=== PATIENT | female | born 1990 | race Caucasian/White ===

== ENCOUNTER 2016-07-04 12:10 | Emergency (ER) | payer MEDICAID ==
[2016-07-04 12:27] VITALS: BP 124/74
[2016-07-04] MEDS ORDERED: Sodium Chloride 0.9% 1,000 ML IV ONE (12:31)
--- NOTE | 2016-07-04 12:36 | ED Physician Chart ---
Chief Complaint/HPI - Patient Information Date Seen:: 07/04/16 Time Seen:: 12:32 Chief Complaint:: abd p History of Present Illness:: pt here for abd p that began at 9am today. has had n/ v x 5. no fever. pain is aching at rt low abd. no uri sx. no chema pmh. denies risk of being gravid. lmp 2 wks ago was nrml. no vag dc. Allergies:: Allergies Allergy/AdvReac Type Severity Reaction Status Date / Time No Known Allergies Allergy Verified 07/04/16 12:27 Vitals:: Vital Signs - 8 hr 07/04/16 12:27 BP 124/74 Historian:: Patient Review of Systems - Review of Systems General/Constitutional: No fever, No chills, No weight loss, No weakness, No diaphoresis, No edema, No loss of appetite Skin: No skin lesions, No rash, No bruising Head: No headache, No light-headedness Eyes: No loss of vision, No pain, No diplopia ENT: No earache, No nasal drainage, No sore throat, No tinnitus Neck: No neck pain, No swelling, No thyromegaly, No stiffness, No mass noted Cardio Vascular: No chest pain, No palpitations, No PND, No orthopnea, No edema Pulmonary: No SOB, No cough, No sputum, No wheezing GI: Nausea, No vomiting, No diarrhea, Pain, No melena, No hematochezia, No constipation, No hematemesis G/U: No dysuria, No frequency, No hematuria Musculoskeletal: No bone or joint pain, No back pain, No muscle pain Endocrine: No polyuria, No polydipsia Psychiatric: No prior psych history, No depression, No anxiety, No suicidal ideation Hematopoietic: No bruising, No lymphadenopathy Allergic/Immuno: No urticaria, No angioedema Neurological: No syncope, No focal symptoms, No weakness, No paresthesia, No headache, No seizure, No dizziness, No confusion, No vertigo Past Medical History - Past Medical History Past Medical History: Other (healthy. . no sx hx.) Social History: Non Smoker Surgical History: None Medication: Reviewed Family Medical History - Family Member Mother Ethnicity: Hx Family Cancer: No Hx Family Congestive Heart Failure: No Hx Family Stroke: No Hx Family Diabetes: No Hx Family Seizures: No Hx Family Dementia: No Hx Family AIDS: No Hx Family COPD: No Hx Family Hepatitis: No Hx Family Psychiatric Problems: No Physical Exam - Physical Examination General/Constitutional: Awake, Well-developed, well-nourished, Alert, No distress, GCS 15, Non-toxic appearing, Ambulatory Head: Atraumatic Eyes: Lids, conjuctiva normal, PERRL, EOMI Skin: Nl inspection, No rash, No skin lesions, No ecchymosis, Well hydrated, No lymphadenopathy ENMT: External ears, nose nl, Nasal exam nl, Lips, teeth, gums nl Neck: Nontender, Full ROM w/o pain, No JVD, No nuchal rigidity, No bruit, No mass, No stridor Respiratory: Nl effort/Exclusion, Clear to Auscultation, No Wheeze/Rhonchi/Rales Cardio Vascular: RRR, No murmur, gallop, rubs, NL S1 S2 GI: No tenderness/rebounding/guarding, No organomegaly, No hernia, Normal BS's, Nondistended, No mass/bruits, No McBurney tenderness Other GI comments:: mod tndr at low abd and sltly to rt side. nabs. no masses. no rebound. no obturator/psoas sx. : No CVA tenderness Extremities: No tenderness or effusion, Full ROM, normal strength in all extremities, No edema, Normal digits & nails Neuro/Psych: Alert/oriented, DTR's symmetric, Normal sensory exam, Normal motor strength, Judgement/insight normal, Mood normal, Normal gait, No focal deficits Misc: normal gait, Normal back, No paraspinal tenderness Labs/Radiology/EKG Results - Lab Results Results: Laboratory Tests 07/04/16 07/04/16 07/04/16 12:50 12:50 13:00 WBC 15.1 H RBC 4.84 Hgb 13.9 Hct 41.2 MCV 85.2 MCH 28.7 MCHC Differential 33.7 RDW 12.4 Plt Count 267 MPV 8.3 Band Neutrophils % 2 Neutrophils (Manual) 86 H Lymphocytes 8 L Monocytes 4 Platelet Estimate ADEQUATE Platelet Morphology NORMAL RBC Morph Micro Appear NORMAL Sodium Potassium Chloride Carbon Dioxide Anion Gap BUN Creatinine Est GFR ( Amer) Est GFR (Non-Af Amer) BUN/Creatinine Ratio Glucose Whole Bld Lactic Acid Calcium Total Bilirubin AST ALT Alkaline Phosphatase Total Protein Albumin Globulin Albumin/Globulin Ratio Lipase Urine Source CLEAN C Urine Color YELLOW Urine Clarity SL. CLOUDY Urine pH 7.0 Ur Specific Ophiem 1.025 Urine Protein TRACE Urine Glucose (UA) NEGATIVE Urine Ketones >=80 H Urine Blood NEGATIVE Urine Nitrate NEGATIVE Urine Bilirubin SMALL H Urine Urobilinogen 0.2 Ur Leukocyte Esterase SMALL H Urine RBC 0-1 Urine WBC 25-50 H Ur Epithelial Cells FEW Urine Bacteria FEW Urine Test NEGATIVE 07/04/16 07/04/16 13:00 13:40 WBC RBC Hgb Hct MCV MCH MCHC Differential RDW Plt Count MPV Band Neutrophils % Neutrophils (Manual) Lymphocytes Monocytes Platelet Estimate Platelet Morphology RBC Morph Micro Appear Sodium 137 Potassium 3.4 L Chloride 105 Carbon Dioxide 21.4 Anion Gap 14.0 BUN 11 Creatinine 0.6 Est GFR ( Amer) > 60.0 Est GFR (Non-Af Amer) > 60.0 BUN/Creatinine Ratio 18.3 Glucose 84 Whole Bld Lactic Acid 1.21 Calcium 9.7 Total Bilirubin 0.6 AST 15 ALT 8 Alkaline Phosphatase 51 Total Protein 7.6 Albumin 4.2 Globulin 3.4 Albumin/Globulin Ratio 1.2 Lipase 12 Urine Source Urine Color Urine Clarity Urine pH Ur Specific Ophiem Urine Protein Urine Glucose (UA) Urine Ketones Urine Blood Urine Nitrate Urine Bilirubin Urine Urobilinogen Ur Leukocyte Esterase Urine RBC Urine WBC Ur Epithelial Cells Urine Bacteria Urine Test - Radiology Results Results: ct abd/p- bilat adnexal masses US pelvis- complex cystic/solid mass at rt adnexa...could be tubo-ovarian abscess Assessment - Assessment Critical Care Time: 110 Excludes all billable procedures: Yes This condition life threatening/high prob of deterioration: Yes ED Septic Shock - . Is Septic Shock (SBP<90, OR Lactate>4 mmol\L) present?: No - <6hrs of presentation: Vital Signs: Vital Signs - 8 hr 07/04/16 12:27 BP 124/74 Reassessment (Disposition) - Reassessment Reassessment:: (aprox 4pm) bryce Wallace (labour market economist ) ..who refuses admit on basis we do not have any transit manager Dr on staff aas of now...confirmed w staff. called Anushka Rodney but getting no call back from labour market economist endoscopy support specialist (5;25p) case dw Dr Carballo advises we do ED to ED transfer to [place] and let them call/admit Drs from there... call received from Stephen Rodney from endoscopy support specialist labour market economist Dr Bruner. Dr Andrade advises not to admit the pt at this point,. He can see her outpt and plan a sx from there. he would want tumor markers before doing a sx (added) and can f/u at his office. He advises dc w just doxy abx for coverage(done). plan dw pt and all qs answered. will add zofran rx for comfort although pt has had no n/v in ed here today.. advised to to return or go to facility e tubing [facility] if sx worsen at all. Reassessment Condition:: Improved - Diagnosis Diagnosis:: 1 abdominal pain 2 rt adnexal complex mass (caant exclude poss ca vs tubovarian abscess) - Aftercare/Follow up Instructions Aftercare/Follow-Up Instructions:: Counseled pt & family regarding lab results/ diagnosis & need follow up - Patient Disposition Discharge/Transfer:: Home Condition at Disposition:: Improved
[2016-07-04] MEDS ORDERED: Morphine Sulfate 4 mg/mL 1mL Syr ONE (13:08)
[2016-07-04 13:10] LABS: HEMATOCRIT 41.2 % (35.0-45.0); HEMOGLOBIN 13.9 gm/dL (11.7-15.5); MEAN CELL VOLUME 85.2 fl (81-100); MEAN CORPUSCULAR HEMOGLOBIN 28.7 pg (27.0-31.0); MEAN CORPUSCULAR HGB CONC 33.7 pg (28.0-36.0); MEAN PLATELET VOLUME 8.3 fl; PLATELET COUNT 267 Th/cmm (150-400); RED BLOOD COUNT 4.84 Mil/cmm (3.80-5.10); RED CELL DISTRIBUTION WIDTH 12.4 % (11.5-20.0); WHITE BLOOD COUNT 15.1 Th/cmm (4.8-10.8)
[2016-07-04 13:25] LABS: ALB/GLOB RATIO 1.2 (1.0-1.8); ALKALINE PHOSPHATASE 51 U/L (34-104); BILIRUBIN,TOTAL 0.6 mg/dL (0.3-1.0); BUN - UREA NITROGEN 11 mg/dL (7-25); BUN/CREATININE RATIO 18.3; CALCIUM SERUM 9.7 mg/dL (8.6-10.3); CARBON DIOXIDE 21.4 mEq/L (21.0-31.0); CHLORIDE 105 mEq/L (98-107); CREATININE - SERUM 0.6 mg/dL (0.6-1.2); GLUCOSE 84 mg/dL (70-105); LIPASE 12 U/L (11-82); POTASSIUM SERUM 3.4 mEq/L (3.5-5.1); SGOT 15 U/L (13-39); SGPT/ALT 8 U/L (7-52); SODIUM SERUM 137 mEq/L (136-145)
[2016-07-04 13:25] LABS: URINE BILIRUBIN SMALL (NEGATIVE); URINE COLOR YELLOW; URINE GLUCOSE (UA) NEGATIVE (NEGATIVE); URINE KETONE >=80 mg/dL (NEGATIVE)
[2016-07-04 13:26] LABS: URINE BLOOD NEGATIVE (NEGATIVE); URINE PROTEIN TRACE mg/dL (NEGATIVE); URINE UROBILINOGEN 0.2 E.U./dL (0.2 - 1.0)
[2016-07-04 13:32] LABS: URINE BACTERIA FEW /hpf (NONE SEEN); URINE EPITHELIAL CELLS FEW /lpf (FEW); URINE RBC 0-1 /hpf (0-5); URINE WBC 25-50 /hpf (0-5)
[2016-07-04 13:35] LABS: BAND NEUTROPHILE 2 % (0-10); NEUTROPHILS 86 % (40-80); PLATELET ESTIMATE ADEQUATE (NORMAL); PLATELET MORPHOLOGY NORMAL (NORMAL); TOTAL CELLS COUNTED 100
--- NOTE | 2016-07-04 14:52 | Diagnostic Imaging Report ---
CT scan abdomen and pelvis without intravenous contrast HISTORY: Pain Total DLP equals 413 CTDI equals 9.0 Axial sections were obtained from the xiphoid process down to the pubic symphysis. Exam is somewhat limited due to the absence of oral/bowel contrast. The liver exhibits a homogeneous parenchyma. No focal lesions. The spleen appears normal. No abnormalities are seen in the region of the pancreas. No focal renal lesions. No hydronephrosis. The exam of the pelvis demonstrates an approximate 4.4 cm hypodense cystic lesion within the right adnexal area. An approximate 3.0 cm hypodense cystic lesion is noted in the left adnexal area. A small amount of free fluid noted in the cul-de-sac region of the pelvis. There is a mild to moderately distended stool-filled ascending colon. The appendix is not clearly delineated. IMPRESSION: 1. 4.4 cm hypodense cystic right adnexal lesion along with an approximate 3.0 cm left adnexal cystic lesion in the small amount of fluid in the cul-de-sac area of the pelvis. In view of the size of the lesions, etiology is indeterminate. Clinical correlation and follow-up recommended. Sonography may be helpful. 2. Mild to moderate distended stool-filled ascending colon
[2016-07-04] MEDS ORDERED: Azithromycin 500 MG in Sodium Chloride 0.9% 250 ML IV ONE (16:42)
[2016-07-04] MEDS ORDERED: cefTRIAXone 1 GM in Sodium Chloride 0.9% 50 ML IV ONE (16:43)
--- NOTE | 2016-07-04 16:49 | Diagnostic Imaging Report ---
Pelvic ultrasound HISTORY: Mass. Transvaginal sonographic technique was utilized. There is a normal uterine size (7.5 x 3.1 x 3.8 cm). No focal myometrial lesions are seen. The endometrium measures 6 mm thickness. An approximate 5 mm sonolucent focus is seen in the region of the cervix consistent with a nabothian cyst. There is an approximate 5.5 x 4.2 x 5.0 cm complex heterogeneous mass within the right adnexal region. An additional 2.5 x 2.9 x 3.9 cm complex focus is also seen within the right adnexal area. No focal lesions seen within the left adnexal area. No free fluid in the pelvis. Etiology is indeterminate. The overall appearance is suggestive of a possible inflammatory process. Clinical correlation is needed. IMPRESSION: 1. Complex heterogeneous regions within the right adnexal area. Exact etiology is uncertain. The overall appearance suggests a possible inflammatory process. Neoplasm cannot be sonographically excluded. Clinical correlation and follow-up needed. In the presence of a positive test, ectopic gestation must be excluded.
[2016-07-05 12:16] LABS: AFP TUMOR MARKER 1.8 ng/mL (0.0-8.3); CARCINOEMBRYONIC ANTIGEN 0.8 ng/mL (0.0-4.7)
== END 2016-07-04 19:20 | disposition home or self-care (01) ==
LOC: ER 12:10
DX: R19.09 Other intra-abdominal and pelvic swelling, mass and lump (principal)
CPT/HCPCS: 99291; 96361; 74176; 76856; 96374; 96375; 99292; 36415; 82105; 82378; 83605; 86304; 85007; 85027; 87086; 81001; 81025; 83615; 83690; 80053; J2405; J7030; Z7502